=== PATIENT | female | born 1970 | race Hispanic/Latino ===

== ENCOUNTER 2021-03-09 09:20 | Observation (INO) | payer OTHER ==
[~2021-03-09] VITALS: Ht 149.9 cm; Wt 58.2 kg
[2021-03-09 09:38] LABS: APPEARANCE,URINE Cloudy (CLEAR); BILIRUBIN,URINE Negative (NEGATIVE); COLOR,URINE Yellow (YELLOW); GLUCOSE, URINE (UA) 500 mg/dL (NEGATIVE); KETONES,URINE Trace mg/dL (NEGATIVE); LEUKOCYTE ESTERASE ,URINE Negative (NEGATIVE); NITRATE,URINE Positive (NEGATIVE); OCCULT BLOOD,URINE Moderate (NEGATIVE); PH,URINE 5.5 (5.0-8.0); PROTEIN,URINE POS 2+ mg/dL (NEGATIVE)
[2021-03-09 09:45] LABS: BASOPHILS % (AUTO) 0.6 % (0.0-5.0); EOSINOPHILS % (AUTO) 0.3 % (0.0-8.0); HEMATOCRIT 44.1 % (36-48); LYMPHOCYTES % (AUTO) 18.4 % (21.0-51.0); MEAN CORPUSCULAR HEMOGLOBIN 29.9 pg (27.0-33.0); MEAN CORPUSCULAR HGB CONC 33.3 g/dL (32.0-36.0); MEAN CORPUSCULAR VOLUME 89.6 fL (79-99); MONOCYTES % (AUTO) 3.5 % (3.0-13.0); NEUTROPHILS % (AUTO) 76.7 % (40.0-77.0); PLATELET COUNT (AUTO) 439 K/uL (130-400); RED BLOOD CELL COUNT(AUTO) 4.92 MIL/uL (4.00-5.50); RED CELL DISTRIBUTION WIDTH 13.2 % (11.0-15.5); WHITE BLOOD COUNT (AUTO) 18.2 K/uL (4.8-10.8)
[2021-03-09 09:49] LABS: BACTERIA,URINE Many /HPF (None Seen)
[2021-03-09 09:51] LABS: RBC,URINE 0-1 /HPF (0-1)
[2021-03-09 09:57] LABS: POTASSIUM 4.3 mmol/L (3.5-5.1)
[2021-03-09] MEDS ORDERED: SODIUM CHLORIDE 0.9% 1000ML 1,000 ML IV ONE ×3 (09:57→20:37)
[2021-03-09 10:01] LABS: ALBUMIN 3.9 g/dL (3.5-5.0); BILIRUBIN,TOTAL 0.4 mg/dL (0.2-1.0); TOTAL PROTEIN, SERUM 8.2 g/dL (6.0-8.3)
[2021-03-09] MEDS ORDERED: LEVOFLOXACIN 500 MG/D5W 100 ML 100 ML ONE (10:11)
[2021-03-09] MEDS ORDERED: ONDANSETRON HCL 4 MG/2 ML VIAL ONE ×3 (10:11→20:54)
[2021-03-09] MEDS ORDERED: MORPHINE SULFATE 2 MG/ML 1ML SYG ONE ×2 (10:12→20:54)
[2021-03-09] MEDS ORDERED: FAMOTIDINE/PF 20 MG/2 ML VIAL IV ONE (10:12)
[2021-03-09] MEDS ORDERED: MAG HYDROX/AL HYDROX/SIMETH ES 30 ML SUSP UDCUP ONE (13:37)
[2021-03-09] MEDS ORDERED: LIDOCAINE HCL 2% VISCOUS 15 ML UDCUP ONE (13:37)
[2021-03-09] MEDS ORDERED: KETOROLAC TROMETHAMINE 30MG/ML ONE (14:41)
[2021-03-09] MEDS ORDERED: MORPHINE SULFATE 4 MG/1ML SYG ONE (14:42)
[2021-03-09] MEDS ORDERED: POTASSIUM CHLORIDE 20MEQ/100ML 100 ML IV PRN ×2 (15:15)
[2021-03-09] MEDS ORDERED: MAGNESIUM 2GM PREMIX 50ML 50 ML IV PRN (15:15)
[2021-03-09] MEDS ORDERED: GLUCAGON 1MG KIT 1 MG ML IM PRN (15:15)
[2021-03-09] MEDS ORDERED: LIDOCAINE HCL-MPF 1% 2ML VIAL IV PRN ×2 (15:15)
[2021-03-09] MEDS ORDERED: POTASSIUM CHLORIDE 20 MEQ ERTAB PO PRN (15:15)
[2021-03-09] MEDS ORDERED: DEXTROSE 50%-WATER 50 ML DISP.SYRIN IV PRN (15:15)
[2021-03-09] MEDS: METRONIDAZOLE 500MG/100ML BAG 100 ML IVPB SCH ×2 (15:15→22:00)
[2021-03-09] MEDS ORDERED: POTASSIUM CHLORIDE 10% ELIXIR 20 MEQ/15 ML UDCUP PO PRN (15:15)
[2021-03-09] MEDS: SODIUM CHLORIDE 0.9% 1000ML 1,000 ML IV SCH ×2 (15:15→23:15)
[2021-03-09] MEDS ORDERED: LABETALOL HCL 5 MG/ML 20ML VIAL IV PRN (16:30)
[2021-03-09] MEDS ORDERED: METOCLOPRAMIDE 10 MG/2 ML VIAL IVP SCH (17:00)
[2021-03-09] MEDS ORDERED: METRONIDAZOLE 500MG/100ML BAG 100 ML ONE (17:22)
[2021-03-09] MEDS ORDERED: METOCLOPRAMIDE 10 MG/2 ML VIAL ONE (17:23)
[2021-03-09] MEDS ORDERED: INSULIN HUMULIN R 100 UNIT/ML 3ML SQ SCH (18:00)
[2021-03-09] MEDS ORDERED: ONDANSETRON HCL 4 MG/2 ML VIAL IVP PRN (19:00)
[2021-03-09] MEDS: LEVOFLOXACIN 500 MG TABLET PO SCH (19:00)
[2021-03-09] MEDS ORDERED: MORPHINE SULFATE 2 MG/ML 1ML SYG IVP PRN (20:15)
[2021-03-09] MEDS ORDERED: PANTOPRAZOLE 40 MG/VIAL ONE (20:38)
[2021-03-09] MEDS: PANTOPRAZOLE 40 MG/VIAL IVP SCH (21:00)
[2021-03-10] MEDS ORDERED: METRONIDAZOLE 500MG/100ML BAG 100 ML ONE ×3 (03:24→17:47)
[2021-03-10 05:55] LABS: HEMATOCRIT 37.5 % (36-48); MEAN CORPUSCULAR HEMOGLOBIN 29.9 pg (27.0-33.0); MEAN CORPUSCULAR HGB CONC 33.6 g/dL (32.0-36.0); MEAN CORPUSCULAR VOLUME 89.1 fL (79-99); RED BLOOD CELL COUNT(AUTO) 4.21 MIL/uL (4.00-5.50); RED CELL DISTRIBUTION WIDTH 13.4 % (11.0-15.5); WHITE BLOOD COUNT (AUTO) 13.8 K/uL (4.8-10.8)
[2021-03-10] MEDS: METRONIDAZOLE 500MG/100ML BAG 100 ML IVPB SCH ×3 (06:00→22:00)
[2021-03-10 06:09] LABS: CREATININE 0.7 mg/dL (0.5-1.5); MAGNESIUM 1.7 mg/dL (1.80-2.40); POTASSIUM 3.5 mmol/L (3.5-5.1)
[2021-03-10 06:25] LABS: HEMOGLOBIN A1C 8.3 % (4.0-6.0)
[2021-03-10] MEDS: SODIUM CHLORIDE 0.9% 1000ML 1,000 ML IV SCH ×3 (07:15→23:00)
[2021-03-10] MEDS: ENOXAPARIN SODIUM 40 MG/0.4 ML SYRINGE SQ SCH (09:00)
[2021-03-10] MEDS: PANTOPRAZOLE 40 MG/VIAL IVP SCH ×2 (09:00→21:00)
[2021-03-10] MEDS ORDERED: ENOXAPARIN SODIUM 40 MG/0.4 ML SYRINGE SQ ONE (10:14)
[2021-03-10] MEDS ORDERED: PANTOPRAZOLE 40 MG/VIAL ONE ×2 (10:15→21:03)
[2021-03-10] MEDS ORDERED: LEVOFLOXACIN 500 MG TABLET ONE (10:16)
[2021-03-10] MEDS ORDERED: MAGNESIUM 2GM PREMIX 50ML 50 ML IV ONE (10:16)
[2021-03-10] MEDS: INSULIN HUMULIN R 100 UNIT/ML 3ML SQ SCH ×2 (16:30→21:00)
[2021-03-10] MEDS: LEVOFLOXACIN 500 MG TABLET PO SCH (19:00)
[2021-03-10] MEDS ORDERED: FENOFIBRATE NANOCRYSTALLIZED 145 MG TAB PO SCH (21:00)
[2021-03-10] MEDS ORDERED: FENOFIBRATE NANOCRYSTALLIZED 145 MG TAB ONE (21:04)
[2021-03-10 22:15] VITALS: BP 170/100
[2021-03-10 23:44] VITALS: BP 147/80
[2021-03-11 03:56] VITALS: BP 150/78
[2021-03-11] MEDS: METRONIDAZOLE 500MG/100ML BAG 100 ML IVPB SCH ×2 (05:20→14:00)
[2021-03-11] MEDS: SODIUM CHLORIDE 0.9% 1000ML 1,000 ML IV SCH (05:21)
[2021-03-11] MEDS: INSULIN HUMULIN R 100 UNIT/ML 3ML SQ SCH ×2 (05:37→11:30)
[2021-03-11 08:21] VITALS: BP 129/73
[2021-03-11] MEDS: PANTOPRAZOLE 40 MG/VIAL IVP SCH (08:40)
[2021-03-11] MEDS: ENOXAPARIN SODIUM 40 MG/0.4 ML SYRINGE SQ SCH (08:41)
[2021-03-11] MEDS ORDERED: LOSARTAN 25 MG TABLET PO SCH (09:00)
[2021-03-11] MEDS ORDERED: NITROFURANTOIN MONOHYD/M-CRYST 100 MG CAPSULE PO SCH ×2 (11:00→21:00)
[2021-03-11] MEDS ORDERED: METR500T PO (11:31)
[2021-03-11] MEDS ORDERED: PANT40TA55 PO (11:31)
[2021-03-11] MEDS ORDERED: NITR100C4 PO (11:31)
[2021-03-11 12:00] VITALS: BP 149/75
== END 2021-03-11 15:11 | disposition home or self-care (01) ==
LOC: EDH 09:20 → EDHIP 15:04 → OBSVTOIN 15:04 → INTOOBSV 15:04 → 3DH 03-10 21:34
PROVIDERS: ADMIT Internal Medicine Pulmonary Disease; ATTEND Internal Medicine Pulmonary Disease
DX: K52.9 Noninfective gastroenteritis and colitis, unspecified (principal); E86.0 Dehydration; N39.0 Urinary tract infection, site not specified; B96.20 Unspecified Escherichia coli [E. coli] as the cause of diseases classified elsewhere; E11.65 Type 2 diabetes mellitus with hyperglycemia; I10 Essential (primary) hypertension; K76.0 Fatty (change of) liver, not elsewhere classified; D72.829 Elevated white blood cell count, unspecified; E78.1 Pure hyperglyceridemia; Z86.16 Personal history of COVID-19; Z90.49 Acquired absence of other specified parts of digestive tract; Z16.12 Extended spectrum beta lactamase (ESBL) resistance; Z79.899 Other long term (current) drug therapy
CPT/HCPCS: 36415 ×2; 74176; 80048; 80053; 80061; 81001; 82550; 82948 ×5; 83036; 83605 ×2; 83690; 83735 ×2; 84145; 84484; 85025; 85027; 87040 ×2; 87077; 87088; 87186; 93005; 96361 ×2; 96365; 96372; 96375 ×2; 99285; C9113 ×4; G0378 ×48; J1650 ×2; J1885; J1956; J2270; J2405 ×3; J2765; J3475; J3490 ×7; J7030 ×3

== ENCOUNTER 2021-04-15 23:43 | Emergency (ER) | payer OTHER ==
[~2021-04-15 23:43] MED LIST: METR500T PO; NITR100C4 PO; PANT40TA55 PO
[2021-04-16] MEDS ORDERED: MORPHINE SULFATE 4 MG/1ML SYG ONE (00:32)
[2021-04-16] MEDS ORDERED: ONDANSETRON HCL 4 MG/2 ML VIAL ONE (00:32)
[2021-04-16 01:35] LABS: APPEARANCE,URINE Clear (CLEAR); BILIRUBIN,URINE Negative (NEGATIVE); COLOR,URINE Yellow (YELLOW); GLUCOSE, URINE (UA) Negative (NEGATIVE); KETONES,URINE Negative (NEGATIVE); LEUKOCYTE ESTERASE ,URINE Negative (NEGATIVE); NITRATE,URINE Negative (NEGATIVE); OCCULT BLOOD,URINE Trace (NEGATIVE); PROTEIN,URINE POS 1+ mg/dL (NEGATIVE); UROBILINOGEN,URINE 0.2 mg/dL (0.2-1.0)
[2021-04-16 01:39] LABS: BASOPHILS % (AUTO) 0.3 % (0.0-5.0); EOSINOPHILS % (AUTO) 1.1 % (0.0-8.0); HEMATOCRIT 36.3 % (36-48); MEAN CORPUSCULAR HEMOGLOBIN 29.9 pg (27.0-33.0); MEAN CORPUSCULAR HGB CONC 33.1 g/dL (32.0-36.0); MEAN CORPUSCULAR VOLUME 90.3 fL (79-99); MONOCYTES % (AUTO) 5.1 % (3.0-13.0); NEUTROPHILS % (AUTO) 71.2 % (40.0-77.0); PLATELET COUNT (AUTO) 385 K/uL (130-400); RED BLOOD CELL COUNT(AUTO) 4.02 MIL/uL (4.00-5.50); RED CELL DISTRIBUTION WIDTH 13.3 % (11.0-15.5); WHITE BLOOD COUNT (AUTO) 12.9 K/uL (4.8-10.8)
[2021-04-16 01:43] LABS: BACTERIA,URINE Rare /HPF (None Seen); SQUAMOUS EPITHELIAL CELL,UR Moderate /HPF (0-2)
[2021-04-16 01:53] LABS: CREATININE 0.7 mg/dL (0.5-1.5); POTASSIUM 3.4 mmol/L (3.5-5.1)
[2021-04-16] MEDS ORDERED: IOHEXOL-350 75 ML VIAL IV ONE (01:55)
[2021-04-16 01:58] LABS: ALBUMIN 3.4 g/dL (3.5-5.0); BILIRUBIN,TOTAL 0.4 mg/dL (0.2-1.0); TOTAL PROTEIN, SERUM 7.2 g/dL (6.0-8.3)
== END 2021-04-16 04:18 | disposition home or self-care (01) ==
LOC: EDH 23:43
DX: A09 Infectious gastroenteritis and colitis, unspecified (principal); E11.9 Type 2 diabetes mellitus without complications; I10 Essential (primary) hypertension; Z86.16 Personal history of COVID-19; Z85.038 Personal history of other malignant neoplasm of large intestine
CPT/HCPCS: 36415; 74177; 80053; 81001; 82550; 83690; 85025; 96374; 96375; 99285; J2270; J2405; Q9967

== ENCOUNTER → 2021-04-22 | Outpatient (CLI) | payer OTHER ==
[~2021-04-22] MED LIST changes: +ALPR0.5T8 PO; +ONDA4TAB4 PO
== END | disposition home or self-care (01) ==
LOC: OIH 10:10
PROVIDERS: ATTEND Family Medicine
DX: Z01.818 Encounter for other preprocedural examination (principal); I10 Essential (primary) hypertension
CPT/HCPCS: 71046

== ENCOUNTER 2021-04-24 10:19 | Emergency (ER) | payer OTHER ==
[~2021-04-24] VITALS: Ht 149.9 cm; Wt 54.9 kg
[~2021-04-24 10:19] MED LIST changes: -ALPR0.5T8 PO; -ONDA4TAB4 PO
[2021-04-24 10:56] VITALS: BP 162/80
[2021-04-24 11:29] LABS: CREATININE 0.7 mg/dL (0.5-1.5); POTASSIUM 3.8 mmol/L (3.5-5.1)
[2021-04-24 11:30] LABS: BASOPHILS % (AUTO) 0.5 % (0.0-5.0); EOSINOPHILS % (AUTO) 0.9 % (0.0-8.0); HEMATOCRIT 39.3 % (36-48); LYMPHOCYTES % (AUTO) 20.7 % (21.0-51.0); MEAN CORPUSCULAR HEMOGLOBIN 29.2 pg (27.0-33.0); MEAN CORPUSCULAR HGB CONC 32.1 g/dL (32.0-36.0); MONOCYTES % (AUTO) 4.1 % (3.0-13.0); NEUTROPHILS % (AUTO) 73.2 % (40.0-77.0); PLATELET COUNT (AUTO) 389 K/uL (130-400); RED BLOOD CELL COUNT(AUTO) 4.32 MIL/uL (4.00-5.50); RED CELL DISTRIBUTION WIDTH 13.3 % (11.0-15.5); WHITE BLOOD COUNT (AUTO) 13.3 K/uL (4.8-10.8)
[2021-04-24 11:34] LABS: ALBUMIN 3.8 g/dL (3.5-5.0); BILIRUBIN,TOTAL 0.4 mg/dL (0.2-1.0); TOTAL PROTEIN, SERUM 8.1 g/dL (6.0-8.3)
[2021-04-24] MEDS ORDERED: ONDANSETRON HCL 4 MG/2 ML VIAL IVP SCH (11:45)
[2021-04-24] MEDS ORDERED: HYDROMORPHONE 1MG AMP (1MG/ML) IVP SCH (11:45)
[2021-04-24 12:03] VITALS: BP 177/94
[2021-04-24 12:32] LABS: APPEARANCE,URINE Clear (CLEAR); BILIRUBIN,URINE Negative (NEGATIVE); COLOR,URINE Yellow (YELLOW); GLUCOSE, URINE (UA) Negative (NEGATIVE); KETONES,URINE Negative (NEGATIVE); LEUKOCYTE ESTERASE ,URINE Negative (NEGATIVE); NITRATE,URINE Negative (NEGATIVE); OCCULT BLOOD,URINE Negative (NEGATIVE); PH,URINE 5.5 (5.0-8.0); PROTEIN,URINE Negative (NEGATIVE); UROBILINOGEN,URINE 0.2 mg/dL (0.2-1.0)
[2021-04-24 13:45] VITALS: BP 177/94
[2021-04-24] MEDS ORDERED: ALPR0.5T8 PO (15:21)
[2021-04-24] MEDS ORDERED: ONDA4TAB4 PO (15:21)
== END 2021-04-24 18:06 | disposition home or self-care (01) ==
LOC: EDH 10:19
DX: R10.84 Generalized abdominal pain (principal); F41.9 Anxiety disorder, unspecified; F43.0 Acute stress reaction; D72.829 Elevated white blood cell count, unspecified; R19.7 Diarrhea, unspecified; I10 Essential (primary) hypertension; E11.9 Type 2 diabetes mellitus without complications
CPT/HCPCS: 36415; 80053; 81003; 82270; 83690; 85025; 96374; 96375; 99284; J1170; J2405

== ENCOUNTER 2023-12-28 09:09 | Emergency (ER) | payer BC, OTHER ==
[~2023-12-28] VITALS: Ht 144.8 cm; Wt 64.9 kg
[~2023-12-28 09:09] MED LIST changes: +ALPR0.5T8 PO; +ONDA4TAB4 PO
[2023-12-28 09:40] LABS: BASOPHILS # (AUTO) 0.06 K/uL (0.00-0.20); BASOPHILS % (AUTO) 0.6 % (0.0-5.0); EOSINOPHILS # (AUTO) 0.12 K/uL (0.00-0.70); EOSINOPHILS % (AUTO) 1.3 % (0.0-8.0); HEMATOCRIT 41.1 % (36-48); IMMATURE GRANULOCYTE ABSOLUTE 0.03 K/uL (0-1); LYMPHOCYTES # (AUTO) 3.8 K/uL (1.0-4.8); LYMPHOCYTES % (AUTO) 39.8 % (21.0-51.0); MEAN CORPUSCULAR HEMOGLOBIN 29.9 pg (27.0-33.0); MEAN CORPUSCULAR HGB CONC 33.1 g/dL (32.0-36.0); MEAN CORPUSCULAR VOLUME 90.3 fL (79-99); MONOCYTES # (AUTO) 0.5 K/uL (0.1-1.0); MONOCYTES % (AUTO) 5.4 % (3.0-13.0); NEUTROPHILS % (AUTO) 52.6 % (40.0-77.0); PLATELET COUNT (AUTO) 332 K/uL (130-400); RED BLOOD CELL COUNT(AUTO) 4.55 MIL/uL (4.00-5.50); RED CELL DISTRIBUTION WIDTH 14.5 % (11.0-15.5); WHITE BLOOD COUNT (AUTO) 9.6 K/uL (4.8-10.8)
[2023-12-28 09:50] LABS: INR <= 0.93 (0.85-1.15); PROTHROMBIN TIME 10.8 SEC (9.6-11.6)
[2023-12-28 09:51] LABS: PARTIAL THROMBOPLASTIN TIME 29.2 SEC (26.3-35.5)
[2023-12-28] MEDS: HYDROXYZINE 25 MG TABLET PO ONE (09:51)
[2023-12-28] MEDS: HYDRALAZINE 20MG/ML VIAL IV ONE (09:52)
[2023-12-28 09:57] LABS: BILIRUBIN,TOTAL 0.4 mg/dL (0.2-1.0); CREATININE 0.8 mg/dL (0.5-1.5); POTASSIUM 3.5 mmol/L (3.5-5.1); TOTAL PROTEIN, SERUM 8.1 g/dL (6.0-8.3)
[2023-12-28 10:04] LABS: B-TYPE NATRIURETIC PEPTIDE 45 pg/mL (0-100)
[2023-12-28] MEDS ORDERED: LORAZEPAM 2 MG/ML 1 ML VIAL IVP ONE (10:30)
[2023-12-28] MEDS ORDERED: LABETALOL 20MG VIAL IV ONE (10:30)
[2023-12-28] MEDS ORDERED: HYDR-3421 PO (11:51)
[2023-12-28] MEDS ORDERED: LISI10TA24 PO (11:51)
[2023-12-28 12:11] LABS: APPEARANCE,URINE CLEAR (CLEAR); BILIRUBIN,URINE NEGATIVE (NEGATIVE); COLOR,URINE COLORLESS (YELLOW); GLUCOSE, URINE (UA) NEGATIVE (NEGATIVE); KETONES,URINE NEGATIVE (NEGATIVE); LEUKOCYTE ESTERASE ,URINE NEGATIVE Leu/uL (NEGATIVE); NITRATE,URINE NEGATIVE (NEGATIVE); OCCULT BLOOD,URINE NEGATIVE (NEGATIVE); PH,URINE 7.5 (5.0-8.0); PROTEIN,URINE NEGATIVE (NEGATIVE); UROBILINOGEN,URINE 0.2 mg/dL (0.2-1.0)
[2023-12-28 12:13] LABS: ADD UA MICROSCOPIC NO
[2023-12-28 12:43] VITALS: BP 133/70; PULSE 94; RESP 18; O2SAT 99
== END 2023-12-28 13:22 | disposition home or self-care (01) ==
LOC: EDH 09:09
DX: F41.9 Anxiety disorder, unspecified (principal); I67.4 Hypertensive encephalopathy; E11.9 Type 2 diabetes mellitus without complications; I10 Essential (primary) hypertension
CPT/HCPCS: 99284; 96374; 70450; 71045; 82550; 83721; 84484; 80053; 83880; 85025; 85610; 85730; 82948; 36415; 93005; J0360